=== PATIENT | female | born 2000 | race African-American/Black ===

== ENCOUNTER 2022-05-13 22:53 | Emergency (ER) | payer OTHER ==
[~2022-05-13] VITALS: Ht 165.1 cm; Wt 72.7 kg
[2022-05-14] MEDS ORDERED: KETOROLAC 30 MG/ML 1ML VIAL IV ONE (07:45)
[2022-05-14] MEDS ORDERED: METOCLOPRAMIDE INJ 10MG/2ML VIAL IV ONE (07:45)
[2022-05-14] MEDS ORDERED: NS 1,000 ML IV ONE (07:45)
[2022-05-14 07:52] LABS: BLOOD UREA NITROGEN 10 MG/DL (9-23); CALCIUM LEVEL 9.3 MG/DL (8.5-10.1); CARBON DIOXIDE LEVEL 26 MMOL/L (20-31); CHLORIDE LEVEL 105 MMOL/L (98-107); CREATININE FOR GFR 1.14 MG/DL (0.55-1.30); GLOMERULAR FILTRATION RATE > 60.0 (>60); GLUCOSE, FASTING 82 MG/DL (60-100); POTASSIUM SERUM 4.4 MMOL/L (3.5-5.1); SODIUM LEVEL 138 MMOL/L (136-145)
[2022-05-14 08:07] LABS: THYROXINE (T4) 8.8 UG/DL (4.5-10.9)
[2022-05-14 08:08] LABS: FREE THYROXINE INDEX 3.2 % (1.3-4.8); T UPTAKE 36.8 % (22.5-37.0); THYROID STIMULATING HORMONE 1.538 uIU/ML (0.55-4.78)
[2022-05-14 08:18] LABS: BASO % 0.3 % (0.0-1.0); EOS # 0.2 10^3/uL (0.0-0.5); EOS % 1.7 % (0.0-3.0); HEMATOCRIT 39.4 % (36.0-47.0); HEMOGLOBIN 12.5 g/dl (12.0-15.5); LYMPH # 3.3 10^3/uL (1.5-5.0); LYMPH % 37.7 % (24.0-44.0); MEAN CORPUSCULAR HEMOGLOBIN 26.9 pg (27.0-33.0); MEAN CORPUSCULAR HGB CONC 31.7 g/dl (32.0-36.5); MEAN CORPUSCULAR VOLUME 84.9 fl (80.0-96.0); MONO # 0.7 10^3/uL (0.0-0.8); MONO % 7.7 % (2.0-8.0); NEUTROPHILS # 4.5 10^3/uL (1.5-8.5); NEUTROPHILS % 52.3 % (36.0-66.0); PLATELET COUNT, AUTOMATED 325 10^3/uL (150-450); RED BLOOD COUNT 4.64 10^6/uL (4.00-5.40); WHITE BLOOD COUNT 8.6 10^3/uL (4.0-10.0)
[2022-05-14 10:04] VITALS: BP 119/78
== END 2022-05-14 10:38 | disposition home or self-care (01) ==
LOC: M ED 22:53
DX: S06.0X9A Concussion with loss of consciousness of unspecified duration, initial encounter (principal); W19.XXXA Unspecified fall, initial encounter; R55 Syncope and collapse
CPT/HCPCS: 70450; 72125; 80048; 84436; 84443; 84479; 85025; 96361; 96374; 96375; 99284; J1885; J2765

== ENCOUNTER 2022-05-18 00:22 | Emergency (ER) | payer OTHER ==
[~2022-05-18] VITALS: Ht 165.1 cm; Wt 70.0 kg
[2022-05-18] MEDS ORDERED: NS 1,000 ML IV ONE (07:50)
[2022-05-18] MEDS ORDERED: ACETAMINOPHEN 500 MG TAB PO ONE (07:50)
[2022-05-18] MEDS ORDERED: METOCLOPRAMIDE INJ 10MG/2ML VIAL IV ONE (07:50)
[2022-05-18 07:52] LABS: BASO % 0.4 % (0.0-1.0); EOS # 0.1 10^3/uL (0.0-0.5); EOS % 1.9 % (0.0-3.0); HEMATOCRIT 37.6 % (36.0-47.0); HEMOGLOBIN 11.7 g/dl (12.0-15.5); LYMPH # 2.3 10^3/uL (1.5-5.0); LYMPH % 31.6 % (24.0-44.0); MEAN CORPUSCULAR HEMOGLOBIN 26.4 pg (27.0-33.0); MEAN CORPUSCULAR HGB CONC 31.1 g/dl (32.0-36.5); MEAN CORPUSCULAR VOLUME 84.9 fl (80.0-96.0); MONO # 0.8 10^3/uL (0.0-0.8); MONO % 11.2 % (2.0-8.0); NEUTROPHILS % 54.5 % (36.0-66.0); PLATELET COUNT, AUTOMATED 302 10^3/uL (150-450); RED BLOOD COUNT 4.43 10^6/uL (4.00-5.40); WHITE BLOOD COUNT 7.4 10^3/uL (4.0-10.0)
[2022-05-18 08:08] LABS: ERYTHROCYTE SEDIMENTATION RATE 19 mm/hr (0-20)
[2022-05-18 08:12] LABS: MAGNESIUM LEVEL 1.8 MG/DL (1.8-2.4)
[2022-05-18 08:16] LABS: FREE THYROXINE INDEX 3.6 % (1.3-4.8); T UPTAKE 35.7 % (22.5-37.0); THYROID STIMULATING HORMONE 0.593 uIU/ML (0.55-4.78); THYROXINE (T4) 10.1 UG/DL (4.5-10.9)
[2022-05-18] MEDS ORDERED: KETOROLAC 30 MG/ML 1ML VIAL IV ONE (09:00)
[2022-05-18] MEDS ORDERED: PAME10CA PO (09:50)
[2022-05-18 09:57] VITALS: BP 128/81
== END 2022-05-18 10:20 | disposition home or self-care (01) ==
LOC: EDBD 00:22 → M ED 00:22
DX: R51.9 Headache, unspecified (principal); R42 Dizziness and giddiness; F07.81 Postconcussional syndrome
CPT/HCPCS: 70450; 80047; 83735; 84436; 84443; 84479; 84702; 85025; 85652; 96361; 96374; 96375; 99284; J1100; J1885; J2765

== ENCOUNTER → 2022-11-12 | Outpatient (CLI) | payer OTHER ==
[~2022-11-12] MED LIST: PAME10CA PO
== END ==
LOC: M PLAIMG 13:14
DX: M25.559 Pain in unspecified hip (principal); M54.2 Cervicalgia; Z87.820 Personal history of traumatic brain injury; G89.29 Other chronic pain